=== PATIENT | female | born 1975 | race Hispanic/Latino ===

== ENCOUNTER 2019-12-31 17:36 | Inpatient (IN) | payer OTHER ==
[~2019-12-31] VITALS: Ht 157.5 cm; Wt 74.9 kg
[2019-12-31] MEDS ORDERED: ONDANSETRON HCL 4 MG/2 ML VIAL ONE ×2 (18:34→19:23)
[2019-12-31 18:35] LABS: EOSINOPHILS % (AUTO) 0.5 % (0.0-8.0)
[2019-12-31 18:38] LABS: BASOPHILS % (AUTO) 0.6 % (0.0-5.0); HEMATOCRIT 33.2 % (36-48); LYMPHOCYTES % (AUTO) 65.7 % (21.0-51.0); MEAN CORPUSCULAR HEMOGLOBIN 24.5 pg (27.0-33.0); MEAN CORPUSCULAR HGB CONC 31.3 g/dL (32.0-36.0); MEAN CORPUSCULAR VOLUME 78.1 fL (79-99); MONOCYTES % (AUTO) 20.7 % (3.0-13.0); NEUTROPHILS % (AUTO) 10.6 % (40.0-77.0); NUCLEATED RED BLOOD CELLS 1.2 % (0.0-0.19); PLATELET COUNT (AUTO) 44 K/uL (130-400); RED BLOOD CELL COUNT(AUTO) 4.25 MIL/uL (4.00-5.50); RED CELL DISTRIBUTION WIDTH 18.5 % (11.0-15.5)
[2019-12-31 18:43] LABS: APPEARANCE,URINE Cloudy (CLEAR); BILIRUBIN,URINE Negative (NEGATIVE); COLOR,URINE Yellow (YELLOW); GLUCOSE, URINE (UA) Negative (NEGATIVE); KETONES,URINE Trace mg/dL (NEGATIVE); LEUKOCYTE ESTERASE ,URINE Trace (NEGATIVE); NITRATE,URINE Negative (NEGATIVE); OCCULT BLOOD,URINE Negative (NEGATIVE); PROTEIN,URINE Trace mg/dL (NEGATIVE)
[2019-12-31 18:44] LABS: WHITE BLOOD COUNT (AUTO) 65.3 K/uL (4.8-10.8)
[2019-12-31 18:47] LABS: HCG,QUAL RESULT NEGATIVE (NEGATIVE)
[2019-12-31 19:00] LABS: AMORPHOUS SEDIMENT,UR Moderate /LPF (None Seen); BACTERIA,URINE Few /HPF (None Seen); MUCUS,URINE Few LPF (None Seen); SQUAMOUS EPITHELIAL CELL,UR Few /HPF (0-2)
[2019-12-31 19:01] LABS: ALBUMIN 3.7 g/dL (3.5-5.0); BILIRUBIN,TOTAL 1.1 mg/dL (0.2-1.0)
[2019-12-31] MEDS ORDERED: IOHEXOL-350 75 ML VIAL IV ONE (19:19)
[2019-12-31] MEDS ORDERED: POTASSIUM BICARB/CIT AC 25 MEQ TABLET.EFF ONE (19:22)
[2019-12-31] MEDS ORDERED: KETOROLAC TROMETHAMINE 30MG/ML ONE (19:23)
[2019-12-31 19:37] LABS: BAND NEUTROPHILS % (MANUAL) 1 % (0-2); EOSINOPHILS % (MANUAL) 2 % (1-6); LYMPHOCYTES % (MANUAL) 79 % (22-44); MAN.DIFF COMMENT-IMPRESSION MANUAL DIFFERENTIAL; MONOCYTES % (MANUAL) 5 % (2-9); SEGMENTED NEUTROPHILS % 13 % (40-70)
[2020-01-01] MEDS ORDERED: MAG HYDROX/AL HYDROX/SIMETH ES 30 ML SUSP UDCUP PO PRN (00:15)
[2020-01-01] MEDS ORDERED: DIPHENHYDRAMINE HCL 25 MG CAPSULE PO PRN (00:15)
[2020-01-01] MEDS ORDERED: MORPHINE SULFATE 4 MG/1ML SYG IV PRN (00:15)
[2020-01-01] MEDS ORDERED: ONDANSETRON HCL 4 MG/2 ML VIAL IV PRN (00:15)
[2020-01-01] MEDS ORDERED: ZOLPIDEM TARTRATE 5 MG TAB PO PRN (00:15)
[2020-01-01] MEDS ORDERED: GUAIFENESIN-DM 200/20 MG 10 ML PO PRN (00:15)
[2020-01-01] MEDS ORDERED: LACTULOSE 20 GM/30 ML UDCUP PO PRN (00:15)
[2020-01-01] MEDS ORDERED: DiphenhydrAMINE HCL 50 MG/ML VIAL IV PRN (00:15)
[2020-01-01] MEDS ORDERED: ACETAMINOPHEN 325 MG TAB PO PRN ×2 (00:15)
[2020-01-01] MEDS ORDERED: NITROGLYCERIN 0.4 MG SL TAB SL PRN (00:15)
[2020-01-01] MEDS ORDERED: MAG HYDROX/AL HYDROX/SIMETH 30 ML, LIDOCAINE HCL 2% VISCOUS 30 ML, DIPHENHYDRAMINE HCL ... PO PRN ×3 (00:15)
[2020-01-01 04:11] LABS: BASOPHILS % (AUTO) 0.3 % (0.0-5.0); EOSINOPHILS % (AUTO) 0.4 % (0.0-8.0); HEMATOCRIT 30.4 % (36-48); LYMPHOCYTES % (AUTO) 67.7 % (21.0-51.0); MEAN CORPUSCULAR HEMOGLOBIN 24.5 pg (27.0-33.0); MEAN CORPUSCULAR HGB CONC 31.3 g/dL (32.0-36.0); MEAN CORPUSCULAR VOLUME 78.4 fL (79-99); MONOCYTES % (AUTO) 19.9 % (3.0-13.0); NEUTROPHILS % (AUTO) 9.9 % (40.0-77.0); NUCLEATED RED BLOOD CELLS 1.1 % (0.0-0.19); PLATELET COUNT (AUTO) 34 K/uL (130-400); RED BLOOD CELL COUNT(AUTO) 3.88 MIL/uL (4.00-5.50); RED CELL DISTRIBUTION WIDTH 18.6 % (11.0-15.5)
[2020-01-01 04:23] LABS: WHITE BLOOD COUNT (AUTO) 61.5 K/uL (4.8-10.8)
[2020-01-01 04:25] VITALS: BP 125/76
[2020-01-01] MEDS: SODIUM CHLORIDE 0.9% 1000ML 1,000 ML IV SCH ×2 (05:05→05:48)
[2020-01-01] MEDS: CEFTRIAXONE SODIUM 1 GM IVP SCH ×2 (05:22→16:56)
[2020-01-01 07:01] LABS: POTASSIUM 3.4 mmol/L (3.5-5.1)
[2020-01-01 07:27] VITALS: BP 116/79
[2020-01-01] MEDS: FAMOTIDINE/PF 20 MG/2 ML VIAL IV SCH ×2 (08:30→21:09)
[2020-01-01] MEDS: ENOXAPARIN SODIUM 40 MG/0.4 ML SYRINGE SQ SCH (08:34)
[2020-01-01 10:36] VITALS: BP 114/77
--- NOTE | 2020-01-01 15:28 | NUR ---
INITIAL SW spoke with patient. She lives with spouse, Nacho Salcedo and children. No home services. DME: [employer]. Patient is able to complete ADL's independently and drives. She has no PCP. Pharmacy is [facility] in [place]. DCP is home. Patient has no insurance or benefits. She is not a [place] citizen or legal resident. Patient educated on [place]4 medication program and [employer] $5 medication program. Patient is being assisted by [employer] for financial matters. Addendum: 01/01/20 at 1530 by CARLOS COYLE SS Amended: Links added.
[2020-01-01 15:34] VITALS: BP 113/75
[2020-01-01 19:00] VITALS: BP 127/80
[2020-01-01 23:21] VITALS: BP 114/72
[2020-01-02 03:24] VITALS: BP 123/84
[2020-01-02] MEDS: CEFTRIAXONE SODIUM 1 GM IVP SCH ×2 (04:28→16:52)
[2020-01-02 06:06] LABS: BASOPHILS % (AUTO) 0.2 % (0.0-5.0); EOSINOPHILS % (AUTO) 0.4 % (0.0-8.0); HEMATOCRIT 28.3 % (36-48); LYMPHOCYTES % (AUTO) 59.6 % (21.0-51.0); MEAN CORPUSCULAR HEMOGLOBIN 24.3 pg (27.0-33.0); MEAN CORPUSCULAR HGB CONC 30.7 g/dL (32.0-36.0); MEAN CORPUSCULAR VOLUME 79.1 fL (79-99); MONOCYTES % (AUTO) 30.8 % (3.0-13.0); NEUTROPHILS % (AUTO) 7.3 % (40.0-77.0); NUCLEATED RED BLOOD CELLS 0.7 % (0.0-0.19); PLATELET COUNT (AUTO) 31 K/uL (130-400); RED BLOOD CELL COUNT(AUTO) 3.58 MIL/uL (4.00-5.50); RED CELL DISTRIBUTION WIDTH 18.6 % (11.0-15.5)
[2020-01-02 06:22] LABS: WHITE BLOOD COUNT (AUTO) 82.1 K/uL (4.8-10.8)
[2020-01-02 07:09] LABS: % IRON SATURATION 70.5 % (22-44)
[2020-01-02 07:19] LABS: ALBUMIN 2.9 g/dL (3.5-5.0); BILIRUBIN,TOTAL 0.7 mg/dL (0.2-1.0); CREATININE 0.9 mg/dL (0.5-1.5); TOTAL PROTEIN, SERUM 6.5 g/dL (6.0-8.3); URIC ACID 11.4 mg/dL (2.6-7.2)
[2020-01-02 08:00] VITALS: BP 115/71
[2020-01-02] MEDS: FAMOTIDINE/PF 20 MG/2 ML VIAL IV SCH ×2 (08:22→20:43)
[2020-01-02] MEDS: ENOXAPARIN SODIUM 40 MG/0.4 ML SYRINGE SQ SCH (09:00)
[2020-01-02 11:00] VITALS: BP 128/79
[2020-01-02] MEDS ORDERED: LIDOCAINE HCL-MPF 1% 2ML VIAL IV PRN (11:15)
[2020-01-02] MEDS ORDERED: POTASSIUM CHLORIDE 20MEQ/100ML 100 ML IV PRN (11:15)
[2020-01-02] MEDS ORDERED: POTASSIUM CHLORIDE 10% ELIXIR 20 MEQ/15 ML UDCUP PO PRN (11:15)
[2020-01-02] MEDS: ALLOPURINOL 300 MG TABLET PO SCH (11:21)
[2020-01-02] MEDS: POTASSIUM CHLORIDE 20 MEQ ERTAB PO PRN ×3 (11:43→16:07)
[2020-01-02 16:00] VITALS: BP 120/76
[2020-01-02 19:24] VITALS: BP 115/75
[2020-01-02] MEDS: MORPHINE SULFATE 2 MG/ML 1ML SYG IV PRN (23:30)
[2020-01-02 23:35] VITALS: BP 129/77
[2020-01-03] VITALS (7 sets, daily range): BP systolic 113–128; BP diastolic 65–81
[2020-01-03] MEDS: CEFTRIAXONE SODIUM 1 GM IVP SCH ×2 (03:48→16:30)
[2020-01-03] MEDS: MORPHINE SULFATE 2 MG/ML 1ML SYG IV PRN (03:49)
[2020-01-03 04:16] LABS: BASOPHILS % (AUTO) 0.3 % (0.0-5.0); EOSINOPHILS % (AUTO) 0.3 % (0.0-8.0); HEMATOCRIT 29.8 % (36-48); LYMPHOCYTES % (AUTO) 63.6 % (21.0-51.0); MEAN CORPUSCULAR HEMOGLOBIN 24.1 pg (27.0-33.0); MEAN CORPUSCULAR HGB CONC 30.5 g/dL (32.0-36.0); MONOCYTES % (AUTO) 29.3 % (3.0-13.0); NEUTROPHILS % (AUTO) 5.3 % (40.0-77.0); NUCLEATED RED BLOOD CELLS 0.5 % (0.0-0.19); PLATELET COUNT (AUTO) 28 K/uL (130-400); RED BLOOD CELL COUNT(AUTO) 3.77 MIL/uL (4.00-5.50); RED CELL DISTRIBUTION WIDTH 18.8 % (11.0-15.5)
[2020-01-03 04:31] LABS: BILIRUBIN,TOTAL 0.7 mg/dL (0.2-1.0); CREATININE 0.9 mg/dL (0.5-1.5); POTASSIUM 3.6 mmol/L (3.5-5.1)
[2020-01-03 04:35] LABS: WHITE BLOOD COUNT (AUTO) 127.6 K/uL (4.8-10.8)
[2020-01-03] MEDS: POTASSIUM CHLORIDE 20 MEQ ERTAB PO PRN (05:15)
[2020-01-03] MEDS: ALLOPURINOL 300 MG TABLET PO SCH (08:08)
[2020-01-03] MEDS: FAMOTIDINE/PF 20 MG/2 ML VIAL IV SCH ×2 (08:08→20:32)
[2020-01-03] MEDS: ENOXAPARIN SODIUM 40 MG/0.4 ML SYRINGE SQ SCH (09:00)
[2020-01-03 09:12] LABS: INR 1.38 (0.85-1.15); PARTIAL THROMBOPLASTIN TIME 29.8 SEC (26.3-35.5); PROTHROMBIN TIME 14.7 SEC (9.6-11.6)
[2020-01-03] MEDS ORDERED: MIDAZOLAM HCL 1 MG/ML 2ML VIAL ONE (10:15)
[2020-01-03] MEDS ORDERED: FENTANYL CITRATE PF 50 MCG/1 ML 2ML VIAL ONE (10:15)
--- NOTE | 2020-01-03 10:45 | NUR ---
CT GD BONE MARROW BX/ASP PROCEDURE PERFORMED BY DR Andrea TIJERINA. PUNCTURE SITE RT BUTTOCK AND PATIENT TOLERATED PROCEDURE WELL. SPECIMEN X 6 COLLECTED AND SENT TO LAB. END OF PROCEDURE AT 1030. BIOPSY NEEDLE REMOVED AND DRESSING APPLIED. NO BLEEDING NOTED. REPORT GIVEN TO Arnoldo NEWSOME LVN AND PATIENT TRANSPORTED TO [facility] VIA BED. AAO X3 WITH NO C/O PAIN.
[2020-01-04 00:03] VITALS: BP 113/75
[2020-01-04 03:58] VITALS: BP 117/76
[2020-01-04 05:05] LABS: BASOPHILS % (AUTO) 0.1 % (0.0-5.0); EOSINOPHILS % (AUTO) 0.1 % (0.0-8.0); HEMATOCRIT 27.9 % (36-48); LYMPHOCYTES % (AUTO) 67.3 % (21.0-51.0); MEAN CORPUSCULAR HEMOGLOBIN 23.8 pg (27.0-33.0); MEAN CORPUSCULAR HGB CONC 30.5 g/dL (32.0-36.0); MEAN CORPUSCULAR VOLUME 78.2 fL (79-99); MONOCYTES % (AUTO) 26.9 % (3.0-13.0); NEUTROPHILS % (AUTO) 4.6 % (40.0-77.0); NUCLEATED RED BLOOD CELLS 0.4 % (0.0-0.19); PLATELET COUNT (AUTO) 21 K/uL (130-400); RED BLOOD CELL COUNT(AUTO) 3.57 MIL/uL (4.00-5.50); RED CELL DISTRIBUTION WIDTH 18.8 % (11.0-15.5)
[2020-01-04 05:07] LABS: WHITE BLOOD COUNT (AUTO) 146.4 K/uL (4.8-10.8)
[2020-01-04 05:26] LABS: ALBUMIN 2.8 g/dL (3.5-5.0); BILIRUBIN,TOTAL 0.9 mg/dL (0.2-1.0); CREATININE 0.7 mg/dL (0.5-1.5); POTASSIUM 3.1 mmol/L (3.5-5.1); TOTAL PROTEIN, SERUM 6.7 g/dL (6.0-8.3)
[2020-01-04] MEDS: CEFTRIAXONE SODIUM 1 GM IVP SCH ×2 (05:59→16:32)
[2020-01-04 08:12] VITALS: BP 98/64
[2020-01-04] MEDS: ALLOPURINOL 300 MG TABLET PO SCH (08:30)
[2020-01-04] MEDS: FAMOTIDINE/PF 20 MG/2 ML VIAL IV SCH ×2 (08:30→20:16)
[2020-01-04] MEDS: ENOXAPARIN SODIUM 40 MG/0.4 ML SYRINGE SQ SCH (09:00)
[2020-01-04 11:06] VITALS: BP 104/66
[2020-01-04 16:24] VITALS: BP 105/62
--- NOTE | 2020-01-04 16:48 | NUR ---
1445 transfer request to [facility] as per doctors orders , information fax to [facility] . 1600 phone call placed to [facility] spoke with Lázaro RITTER which states he is aware, he did received call from Dr Camp so he will be working on a bed. primary nurse notified . Jose hughes
[2020-01-04 20:00] VITALS: BP 117/70
[2020-01-04] MEDS ORDERED: DEXAMETHASONE SOD PHOSPHATE 4 MG/ML 1ML VIAL IVP SCH (20:30)
--- NOTE | 2020-01-04 23:00 | NUR ---
MARINA CALLED TO MELINA AT [facility].
--- NOTE | 2020-01-04 23:40 | NUR ---
EMS HERE TO TRANSFER PT. NO DISTRESS NOTED.
== END 2020-01-04 23:29 | disposition short-term general hospital (02) | DRG 841 ==
LOC: EDH 17:36 → EDHIP 17:37 → 3AH 01-01 03:56
PROVIDERS: ADMIT Internal Medicine; ATTEND Internal Medicine
PROC: 07DR3ZX Extraction of Iliac Bone Marrow, Percutaneous Approach, Diagnostic (ICD-10-PCS; principal; 2020-01-03)
PROC: 30233R1 Transfusion of Nonautologous Platelets into Peripheral Vein, Percutaneous Approach (ICD-10-PCS; 2020-01-03)
DX: C85.10 Unspecified B-cell lymphoma, unspecified site (principal); N39.0 Urinary tract infection, site not specified; C92.10 Chronic myeloid leukemia, BCR/ABL-positive, not having achieved remission; C91.10 Chronic lymphocytic leukemia of B-cell type not having achieved remission; K92.0 Hematemesis; R16.2 Hepatomegaly with splenomegaly, not elsewhere classified; C85.90 Non-Hodgkin lymphoma, unspecified, unspecified site; D69.6 Thrombocytopenia, unspecified; E87.6 Hypokalemia; D50.9 Iron deficiency anemia, unspecified
CPT/HCPCS: 36415; 36430; 38222; 71045; 74177; 77012; 80048; 80053; 81001; 81025; 82607; 82746; 83010; 83540; 83550; 83615; 83690; 84165; 84550; 85025; 85045; 85610; 85730; 86900; 86901; 87040; 87077; 87088; 87186; G0378; J0696; J1100; J1200; J1650; J1885; J2250; J2405; J3010; J3480; J3490; P9034; Q9967